=== PATIENT | female | born 1950 | race Two or more races ===

== ENCOUNTER 2024-01-03 14:15 | Emergency (ER) | payer OTHER ==
[~2024-01-03] VITALS: Ht 165.1 cm; Wt 57.0 kg
[2024-01-03 14:35] VITALS: BP 139/45; RESP 24; O2SAT 92
[2024-01-03] MEDS ORDERED: methylPREDNISolone SOD SUCC 125 MG/2 ML VL IV ONE (14:45)
[2024-01-03 14:53] VITALS: PULSE 78
[2024-01-03 15:02] LABS: Basophils # (auto) 0 10 ^3/uL (0-0.2); Basophils % (auto) 0.4 % (0.0-2.0); Eosinophils # (auto) 0.2 10 ^3/uL (0-0.8); Eosinophils % (auto) 4.1 % (0.0-7.0); Hematocrit 33.1 % (36.0-46.0); Hemoglobin 10.7 g/dL (12.2-16.2); Lymphocytes # (auto) 0.3 10 ^3/uL (0.4-5.4); Lymphocytes % (auto) 8.5 % (10.0-50.0); Mean Corpuscular Hemoglobin 27.5 pg (28.0-32.0); Mean Corpuscular Hgb Conc. 32.3 g/dL (32.0-36.0); Mean Corpuscular Volume 85.1 fL (80.0-100.0); Monocytes # (auto) 0.3 10 ^3/uL (0-1.3); Monocytes % (auto) 7.2 % (0.0-12.0); Neutrophils # (auto) 3.2 10 ^3/uL (1.6-8.6); Neutrophils % (auto) 79.8 % (37.0-80.0); Nucleated Red Blood Cells % 0.2 %; Platelet Count (auto) 141 10^3/uL (140-450); Red Blood Cells 3.89 10^6/uL (4.0-5.20); Red Cell Distribution Width 18.1 % (11.8-14.3)
[2024-01-03 15:13] LABS: Chloride 111 mmol/L (98-107); Potassium 3.8 mmol/L (3.5-5.1); Sodium 139 mmol/L (136-145)
[2024-01-03 15:14] LABS: Anion Gap 9 (5-15); Carbon Dioxide 19 mmol/L (20-31)
[2024-01-03 15:15] LABS: Calcium 9.3 mg/dL (8.7-10.4)
[2024-01-03 15:18] LABS: COVID19 ANTIGEN SOFIA FIA NEGATIVE (NEGATIVE); Rapid Influenza A Negative (Negative); Rapid Influenza B Negative (Negative)
[2024-01-03 15:19] LABS: BUN/Creatinine Ratio 12.2 (10.0-20.0); Blood Urea Nitrogen 20 mg/dL (9-23); Glucose 107 mg/dL (74-106)
[2024-01-03 19:05] LABS: Urine Bacteria FEW /hpf (None Seen); Urine Blood Negative /uL (Negative); Urine Clarity Turbid (Clear); Urine Color Colorless (Yellow); Urine Protein, UAD Negative (Negative); Urine Specific Gravity 1.009 (1.001-1.035); Urine Urobilinogen Normal (Negative); Urine WBC 178 /hpf (0 - 5); Urine pH 5.5 (5.0-9.0)
[2024-01-03] MEDS ORDERED: IOHEXOL 350 MG/ML 100ML IJ ONE (20:55)
[2024-01-03] MEDS ORDERED: ENOXAPARIN SOD 100 MG/1 ML SYRINGE SC ONE (21:15)
[2024-01-03] MEDS ORDERED: cefTRIAXone 1GM/50ML D5W 50 ML IV ONE (21:15)
== END 2024-01-03 21:36 | disposition left against medical advice (07) ==
LOC: ER 14:15
DX: J96.00 Acute respiratory failure, unspecified whether with hypoxia or hypercapnia (principal); I27.20 Pulmonary hypertension, unspecified; J81.1 Chronic pulmonary edema; R79.89 Other specified abnormal findings of blood chemistry; Z86.73 Personal history of transient ischemic attack (TIA), and cerebral infarction without residual deficits; Z88.0 Allergy status to penicillin; Z90.49 Acquired absence of other specified parts of digestive tract; Z98.51 Tubal ligation status; Z20.822 Contact with and (suspected) exposure to COVID-19
CPT/HCPCS: 36415; 71046; 80048; 81001; 83605; 83880; 84484; 85025; 85379; 87040; 87426; 87804; 99291; Q9967